=== PATIENT | male | born 1985 | race Caucasian/White ===

== ENCOUNTER 2019-08-15 02:27 | Emergency (ER) | payer BC ==
[~2019-08-15] VITALS: Ht 180.3 cm; Wt 81.8 kg
[2019-08-15 02:48] LABS: ALBUMIN 3.8 gm/dL (3.5-5.0); BILIRUBIN,TOTAL 0.6 mg/dL (0.0-1.0); CALCIUM 10.1 mg/dL (8.4-10.2); CREATININE, serum 1.19 (0.66-1.25); HEMATOCRIT 48.2 % (42.0-52.0); HEMOGLOBIN 15.1 g/dl (13.5-18.0); MEAN CELL VOLUME 99 fl (80.0-100.0); MEAN CORPUSCULAR HEMOGLOBIN 31 pg (27.0-31.0); MEAN CORPUSCULAR HGB CONC 31 g/dl (33.0-37.0); MEAN PLATELET VOLUME 11.9 fl (7.4-10.4); PLATELET COUNT 171 K/mm3 (130-400); POTASSIUM 7.2 mmol/L (3.4-5.0); RED BLOOD COUNT 4.86 M/mm3 (4.20-5.60); REDCELL DISTRIBUTION WIDTH-CV 12.3 % (11.5-14.5); TOTAL PROTEIN 6.2 gm/dL (6.4-8.2)
[2019-08-15 02:57] LABS: TROPONIN-I 0.026 ng/mL (0.000-0.035)
[2019-08-15 03:22] LABS: EOSINOPHIL 8 % (0-4); NEUTROPHILS 22 % (42.0-75.2); NUCLEATED RED BLOOD CELL 2 (0-6)
[2019-08-15 03:23] LABS: LYMPHOCYTE 68 % (20.0-51.0); PLATELET ESTIMATE NORMAL (NORMAL)
[2019-08-15 05:52] VITALS: BP 148/77; PULSE 89; TEMP 32.8
--- NOTE | 2019-08-15 06:29 | NUR ---
PT WAS RECIEVED IN THE ED IN ASYSTOLE AND NO SIGNS OF SPONTANEOUS RESPIRATIONS. AFTER THE PATIENT WAS RETURNED TO A FUNCTIONAL CARDIAC RYTHYM, AND WAS INTUBATED, THE PATIENT RECIEVED 2 2.5MG ALBUTEROL NEBULIZERS, AND 2 DUONEB TREATMENTS.
[2019-08-15 06:32] LABS: ARTERIAL BLD GAS O2 SATURATION 89.1 % (92-100); ARTERIAL BLD GAS TCO2 CT 26.9; ARTERIAL BLOOD GAS BASE EXCESS -13.4 (-2-2); ARTERIAL BLOOD GAS HCO3 23.2 meq/L (22-26); ARTERIAL BLOOD GAS PO2 85.5 mmHg (80-100)
[2019-08-15 06:33] LABS: ARTERIAL BLD GAS O2 SATURATION 23.3 % (92-100)
[2019-08-15 06:34] LABS: ARTERIAL BLD GAS O2 SATURATION 99.4 % (92-100); ARTERIAL BLD GAS TCO2 CT 19.2; ARTERIAL BLOOD GAS BASE EXCESS -27.5 (-2-2); ARTERIAL BLOOD GAS HCO3 14.1 meq/L (22-26)
[2019-08-15 06:35] LABS: ARTERIAL BLOOD GAS PCO2 122.5 mmHg (35-45)
[2019-08-15 06:36] LABS: ARTERIAL BLOOD GAS PO2 34.7 mmHg (80-100)
[2019-08-15 06:37] LABS: ARTERIAL BLOOD GAS PCO2 164.3 mmHg (35-45); ARTERIAL BLOOD GAS PO2 473.4 mmHg (80-100); ARTERIAL BLOOD GAS pH 6.55 (7.35-7.45)
--- NOTE | 2019-08-16 08:43 | NUR ---
damper worker contacted Tami Chua (social work superviser at [facility]) and advised that patient's wallet is in our hospital.
== END 2019-08-15 06:00 | disposition short-term general hospital (02) ==
LOC: COL.ER 02:27
PROVIDERS: Emergency Medicine; Nurse Practitioner
DX: I46.9 Cardiac arrest, cause unspecified (principal); J45.909 Unspecified asthma, uncomplicated
CPT/HCPCS: J0171; J0282; J0461; J1265; J1815; J3475; J7042; J7060